=== PATIENT | female | born 2000 | race Caucasian/White ===

== ENCOUNTER 2024-03-23 09:07 | Emergency (ER) | payer OTHER ==
[~2024-03-23] VITALS: Ht 154.9 cm; Wt 57.2 kg
[2024-03-23 10:56] LABS: URINE PREG TEST NEGATIVE (NEGATIVE)
[2024-03-23 12:13] VITALS: BP 100/58; TEMP 98.7; O2SAT 100
== END 2024-03-23 13:19 | disposition home or self-care (01) ==
LOC: M ED 09:07
DX: R19.7 Diarrhea, unspecified (principal); F17.200 Nicotine dependence, unspecified, uncomplicated